=== PATIENT | male | born 1985 | race Caucasian/White ===

== ENCOUNTER 2023-12-25 21:18 | Emergency (ER) | payer OTHER, SELFPAY ==
[2023-12-25 21:22] VITALS: BP 164/90; PULSE 101; TEMP 36.6; O2SAT 97; BMI 31.2
--- NOTE | 2023-12-25 22:19 | ED.GENADUL1 ---
HPI HPI - General Adult General Chief complaint: Dizziness Stated complaint: General Weakness Time Seen by Provider: 12/25/23 22:16 Source: patient Mode of arrival: walk-in Limitations: no limitations History of Present Illness HPI narrative: 38-year-old male presented to the emergency department from work for dizziness and feeling like he might pass out. It is very hot where he works. He also drinks a great deal of coffee and energy drinks as well. He did not pass out at any point and after drinking some water in our lobby he was starting to feel little bit better. No fever or chest pain or shortness of breath. Related Data Home Medications ?Medication ?Instructions ?Recorded ?Confirmed No Known Home Medications 12/25/23 12/25/23 Allergies Allergy/AdvReac Type Severity Reaction Status Date / Time No Known Drug Allergies Allergy Verified 12/25/23 21:21 Opioid HPI Opioid Management Most Recent Opioid Data: No Data to Display Review of Systems ROS Narrative A ten point review of systems is negative except as noted above. PFSH PFSH Social History Little interest or pleasure in doing things: not at all Feeling down, depressed, or hopeless: not at all Exam Narrative Exam Narrative: Nurses note and vital signs reviewed and patient is not hypoxic. General: The patient appears in no apparent distress. Skin: Warm, dry, no pallor noted. There is no rash noted. Head: Normocephalic, atraumatic Eye: Normal conjunctiva, no drainage Ears, Nose, Mouth, and Throat: oral mucosa is moist. Nares patent. Cardiovascular: Regular Rate and Rhythm Respiratory: Patient is in no distress, no accessory muscle use, lungs are clear to auscultation, no wheezing, rales or rhonchi Back: non-tender GI: Soft and nontender Musculoskeletal: The patient has no evidence of calf tenderness, no pitting edema, symmetrical pulses noted bilaterally Neurological: A&O, normal speech Psychiatric: Cooperative Constitutional Vital Signs, click to edit/add: Last Vital Signs Temp 98 F 12/25/23 21:22 Pulse 101 H 12/25/23 21:22 Resp 18 12/25/23 21:22 BP 164/90 H 12/25/23 21:22 Pulse Ox 97 12/25/23 21:22 O2 Del Method Room Air 12/25/23 21:22 Course Vital Signs Vital signs: Vital Signs Temperature 98 F 12/25/23 21:22 Pulse Rate 101 H 12/25/23 21:22 Respiratory Rate 18 12/25/23 21:22 Blood Pressure 164/90 H 12/25/23 21:22 Pulse Oximetry 97 12/25/23 21:22 Oxygen Delivery Method Room Air 12/25/23 21:22 Temperature 98 F 12/25/23 21:22 Pulse Rate 101 H 12/25/23 21:22 Respiratory Rate 18 12/25/23 21:22 Blood Pressure 164/90 H 12/25/23 21:22 Pulse Oximetry 97 12/25/23 21:22 Oxygen Delivery Method Room Air 12/25/23 21:22 Medical Decision Making MDM Narrative Medical decision making narrative: He was given IV fluids and feels much better now. Blood work is appropriate. He is able to be discharged home and was given the rest of the night off from work. Treatment diagnosis and follow-up were discussed with the patient. My clinical impression is that he has heat exhaustion. Differential Diagnosis Differential Diagnosis: Dehydration, heat exhaustion, electrolyte imbalance Lab Data Lab results reviewed: Yes I reviewed the patient's lab results Labs: Lab Results 12/25/23 Range/Units 22:25 WBC 11.5 H (4.0-11.0) 10^3/uL RBC 4.87 (4.70-6.10) 10^6/uL Hgb 15.3 (14.0-18.0) g/dL Hct 44.0 (42.0-54.0) % MCV 90.3 (80.0-94.0) fL MCH 31.4 (25.9-34.0) pg MCHC 34.8 (29.9-35.2) g/dL RDW 11.9 (11.0-15.0) % Plt Count 282 (150-450) 10^3/uL MPV 9.7 (9.5-13.5) fL Neut % (Auto) 76.8 H (43.0-75.0) % Lymph % (Auto) 15.5 L (20.5-60.0) % Morrill % (Auto) 5.5 (1.7-12.0) % Eos % (Auto) 1.4 (0.9-7.0) % Baso % (Auto) 0.6 (0.2-2.0) % Neut # (Auto) 8.8 H (1.4-6.5) 10^3/uL Lymph # (Auto) 1.8 (1.2-3.8) 10^3/uL Morrill # (Auto) 0.6 (0.3-0.8) 10^3/uL Eos # (Auto) 0.2 (0.0-0.7) 10^3/uL Baso # (Auto) 0.1 (0.0-0.1) 10^3/uL Abs Immat Gran (auto) 0.02 (0.00-0.03) 10^3/uL Imm/Tot Granulo (auto) 0.2 (0.0-0.5) % Sodium 138 (136-145) mmol/L Potassium 3.7 (3.5-5.1) mmol/L Chloride 101 (98-107) mmol/L Carbon Dioxide 26.8 (21.0-32.0) mmol/L Anion Gap 13.9 BUN 22.0 H (7.0-18.0) mg/dL Creatinine 1.30 (0.70-1.30) mg/dL Est GFR ( Amer) >60 (>=60) Est GFR (Non-Af Amer) >60 (>=60) BUN/Creatinine Ratio 16.9 Glucose 126 H (74-106) mg/dL Calcium 9.9 (8.5-10.1) mg/dL Discharge Plan Discharge Chief Complaint: Dizziness Clinical Impression: Heat exhaustion Patient Disposition: Home, Self-Care Time of Disposition Decision: 23:24 Condition: Good Mode of Transportation: Private Vehicle Prescriptions / Home Meds: No Action No Known Home Medications Print Language: [place] Irish Instructions: Heat Exhaustion (ED), Liquids and Hydration for Athletes (ED) Referrals: Physician,Non-Staff, MD [Primary Care Provider] - 1 week
[2023-12-25] MEDS: ONDANSETRON PF 4 MG/2 ML VIAL IV (22:33)
[2023-12-25] MEDS: 0.9 % SODIUM CHLORIDE 1,000 ML 1000 ML IV (22:33)
[2023-12-25 22:38] LABS: Basophils Absolute Auto 0.1 10^3/uL (0.0-0.1); Basophils Percent Auto 0.6 % (0.2-2.0); Eosinophils Absolute Auto 0.2 10^3/uL (0.0-0.7); Eosinophils Percent Auto 1.4 % (0.9-7.0); Hemoglobin 15.3 g/dL (14.0-18.0); Immature Granulocytes Abs Auto 0.02 10^3/uL (0.00-0.03); Immature Granulocytes Pct Auto 0.2 % (0.0-0.5); Lymphocytes Absolute Auto 1.8 10^3/uL (1.2-3.8); Lymphocytes Percent Auto 15.5 % (20.5-60.0); Mean Corpuscular HGB Conc 34.8 g/dL (29.9-35.2); Mean Corpuscular Hemoglobin 31.4 pg (25.9-34.0); Mean Corpuscular Volume 90.3 fL (80.0-94.0); Mean Platelet Volume 9.7 fL (9.5-13.5); Monocytes Absolute Auto 0.6 10^3/uL (0.3-0.8); Monocytes Percent Auto 5.5 % (1.7-12.0); Neutrophils Absolute Auto 8.8 10^3/uL (1.4-6.5); Neutrophils Percent Auto 76.8 % (43.0-75.0); Platelet Count 282 10^3/uL (150-450); Red Blood Count 4.87 10^6/uL (4.70-6.10); Red Cell Distribution Width 11.9 % (11.0-15.0); White Blood Count 11.5 10^3/uL (4.0-11.0)
[2023-12-25 22:43] LABS: Anion Gap 13.9; BUN Creatinine Ratio 16.9; Calcium 9.9 mg/dL (8.5-10.1); Carbon Dioxide 26.8 mmol/L (21.0-32.0); Chloride 101 mmol/L (98-107); Estimated GFR (African America >60 (>=60); Estimated GFR (Non-African Ame >60 (>=60); Glucose 126 mg/dL (74-106); Potassium 3.7 mmol/L (3.5-5.1); Sodium 138 mmol/L (136-145)
== END 2023-12-25 23:36 | disposition home or self-care (01) ==
PROVIDERS: Emergency Provider Emergency Medicine
DX: T67.5XXA Heat exhaustion, unspecified, initial encounter (principal); X30.XXXA Exposure to excessive natural heat, initial encounter
CPT/HCPCS: 36415; 80048; 85025; 96361; 96374; 99284; J2405

== ENCOUNTER 2024-06-01 17:52 | Emergency (ER) | payer OTHER, SELFPAY ==
[2024-06-01 17:56] VITALS: BP 147/99; PULSE 102; TEMP 36.7; O2SAT 97; BMI 32.5
--- OUTSIDE RECORDS SUMMARY | 2024-06-01 17:59 | XMS_ITS | CCD ---
Author Organization [facility] Care Team Providers Care Nuclear Medical Technologist Name Role Phone MAC DELONG Admitting Unavailable BALJEET MAC Attending Unavailable MAC DELONG Referring Unavailable BALJEET MAC Consulting Unavailable DIMITRY MCGUIRE Primary Care Physician Dimitry Mcguire DO Primary Care Provider Adi GUAMAN Attending Unavailable GUAMAN, Adi Ortiz Attending Unavailable DENIZ, Adi Ortiz Attending Unavailable DIMITRY MCGUIRE Referring Unavailable Adi GUAMAN Attending Unavailable Guaman, Adi Attending Unavailable GuamanAdi Admitting Unavailable Allergies Allergy Classification Reported Allergen(s) Allergy Type Date of Onset Reaction(s) Facility (1 source) No Known Medication Allergies; Translations: [No Known Medication Allergies] Propensity to adverse reactions (disorder) [facility] Repository Medications Current Medications Medication Drug Class(es) Dates Sig (Normalized) Sig (Original) cephalexin 500 mg oral capsule (1 source) Cephalosporin Antibacterial Start: 04-17-2023 End: 04-22-2023 take 1 capsule by mouth twice daily at mealtime Keflex 500 mg Cap 500 mg = 1 cap(s), Oral, BID, start with first meal after procedure, X 5 day(s), # 10 cap(s), Refills(s) 0, Pharmacy: [facility]/pharmacy #[id number], 183, cm, 04/17/23 13:24:00 EST, Height/Length Dosing, 107, kg, 04/17/23 13:24:00 EST, Weight Dosing Start Date: 04/17/23 Stop Date: 04/22/23 Status: Ordered Fish Oils (2 sources) Start: 04-17-2023 Fish Oil Oral, Refill(s) 0 Start Date: 04/17/23 Status: Ordered Multivitamin preparation (2 sources) Start: 04-17-2023 multivitamin Refill(s) 0 Start Date: 04/17/23 Status: Ordered Problems Problem Classification Problem Date Documented Date Episodic/Chronic Alcohol-related disorders (4 sources) Alcohol abuse; Translations: [Alcohol abuse, uncomplicated] Onset: 01-16-2024 Resolved: 01-16-2024 04-17-2023 Chronic Contraceptive and procreative management (1 source) Contraception status; Translations: [Encounter for other general counseling and advice on contraception] Onset: 04-17-2023 Episodic Malaise and fatigue (2 sources) Fatigue; Translations: [Chronic fatigue, unspecified] 01-16-2024 Chronic Other nutritional; endocrine; and metabolic disorders (2 sources) Abnormal weight gain; Translations: [Abnormal weight gain] 01-16-2024 Episodic Other screening for suspected conditions (not mental disorders or infectious disease) (2 sources) Patient encounter status; Translations: [Encounter for screening for cardiovascular disorders] 01-16-2024 Episodic Residual codes; unclassified (4 sources) Other specified health status; Translations: [OTHER SPECIFIED HEALTH STATUS] Onset: 04-22-2019 Episodic Residual codes; unclassified (2 sources) Reduced libido; Translations: [Decreased libido] 01-16-2024 Episodic Substance-related disorders (4 sources) Smoker; Translations: [Nicotine dependence, unspecified, uncomplicated] Onset: 01-16-2024 04-17-2023 Chronic Comment on above: Added secondary to d ocumentation in Social History. Results Test Name Value Interpretation Reference Range Facility Pathology Request for Lab Co rpon 02-23-2024 Pathology Request for Lab Taye Normal [facility] Comment on above: Order Comment: PATHO LOGY VAS SPECIMEN Result Comment: See report. Scanned copy available in EMR. PERFORMED BY: [place] [address] PATHOLOGIST PALLIATIVE MEDICINE PHYSICIAN VAHID BARBER M.D. Performed By: #### P ATH TO [facility] #### [address] Consent for Procedure/Surger yon 06-28-2023 Consent for Procedure/Surgery [id number] #1.00TIFF [facility] Insurance Correspondenceon 0 05-17-2023 Insurance Correspondence [id number] #1.00TIFF [facility] Consent for Procedure/Surger yon 05-01-2023 Consent for Procedure/Surgery [id number] #1.00TIFF [facility] Formson 04-18-2023 Forms [id number] 9#1.00TIFF [facility] Forms [id number] #1.00TIFF [facility] Ambulatory Visit Summaryon 0 04-17-2023 Ambulatory Visit Summary ALLYN KIM :1985 Visit Date:04/17/2023 Ambulatory Visit Instructions Your Diagnosis Encounter for vasectomy counseling Your Care Team Attending Physician - Adi GUAMAN MD Primary Care Physician - DIMITRY Malhotra Referring Physician - DIMITRY Malhotra This Is Your Medications List cephalexin (Keflex 500 mg Cap) Contact prescribing physician if questions or concerns multivitamin omega-3 polyunsaturated fatty acids (Fish Oil) Discharge Vitals Heart Rate (Peripheral) 70 Respiratory Rate 16 Blood Pressure 131/87 Height 183 cm Height 72 in Weight 107 kg Weight 235.4 lb BMI 31.95 What to do next Scheduled Follow-Up Appointments Monday 2:30 PM EDT With: Adi GUAMAN MD Where: [facility] Patient Educationon 04-17-19 24 Patient Education Urology Vasectomy, Care After This sheet gives you information about how to care for yourself after your procedure. Your health care provider may also give you more specific instructions. If you have problems or questions, contact your health care provider. What can I expect after the procedure? After the procedure, it is common to have: ? Mild pain, swelling, or discomfort in your scrotum or redness on your scrotum. ? Some blood coming from your incisions or puncture sites for 1 or 2 days. ? Blood in your semen. Follow these instructions at home: Medicines ? Take wvfy-jpb-poxootl and prescription medicines only as told by your health care provider. ? Avoid taking any medicines that contain aspirin or NSAIDs, such as ibuprofen. These medicines can make bleeding worse. Activity ? For the first 2 days after surgery, avoid physical activity and exercise that requires a lot of energy. Ask your health care provider what activities are safe for you. ? Do not take part in sports or perform heavy physical labor until your pain has improved, or until your health care provider says it is okay. ? You may have limits on the amount of weight you can lift as told by your health care provider. ? Do not ejaculate for at least 1 week after the procedure, or for as long as you are told. ? You may resume sexual activity 7?10 days after your procedure, or when your health care provider approves. Use a different method of control (contraception) until you have had test results that confirm that there is no sperm in your semen. Scrotal support ? Use scrotal support, such as a jockstrap or underwear with a supportive pouch, as needed for 1 week after your procedure. ? If you feel discomfort in your scrotum, you may remove the scrotal support to see if the discomfort is relieved. Sometimes scrotal support can press on the scrotum and cause or worsen discomfort. ? If your skin gets irritated, you may add some germ-free (sterile), fluffed bandages or a clean washcloth to the scrotal support. Managing pain and swelling If directed, put ice on the affected area. To do this: ? Put ice in a plastic bag. ? Place a towel between your skin and the bag. ? Leave the ice on for 20 minutes, 2?3 times a day. ? Remove the ice if your skin turns bright red. This is very important. If you cannot feel pain, heat, or cold, you have a greater risk of damage to the area. General instructions ? Check your incisions or puncture sites every day for signs of infection. Check for: ? Redness, swelling, or more pain. ? Fluid or blood. ? Warmth. ? Pus or a bad smell. ? Leave stitches (sutures) in place. The sutures will dissolve on their own and do not need to be removed. ? Keep all follow-up visits. This is important because you will need a test to confirm that there is no sperm in your semen. Multiple ejaculations are needed to clear out sperm that were beyond the vasectomy site. You will need one test result showing that there is no sperm in your semen before you can resume unprotected sex. This may take 2?4 months after your procedure. ? If you were given a sedative during the procedure, it can affect you for several hours. Do not drive or operate machinery until your health care provider says that it is safe. Contact a health care provider if: ? You have redness, swelling, or more pain around an incision or puncture site, or in your scrotum area. ? You have bleeding from an incision or puncture site. ? You have pus or a bad smell coming from an incision or puncture site. ? You have a fever. ? An incision or puncture site opens up. Get help right away if: ? You develop a rash. ? You have trouble breathing. Summary ? After your procedure, it is common to have mild pain, swelling, redness, or discomfort in your scrotum. ? For the first 2 days after surgery, avoid physical activity and exercise that requires a lot of energy. ? Put ice on the affected area. Leave the ice on for 20 minutes, 2?3 times a day. ? If you were given a sedative during the procedure, it can affect you for several hours. Do not drive or operate machinery until your health care provider says that it is safe. This information is not intended to replace advice given to you by your health care provider. Make sure you discuss any questions you have with your health care provider. Document Revised: 08/06/2020 Document Reviewed: 08/06/2020 [employer] Patient Education ? 2022 [employer] Vasectomy Vasectomy is a procedure in which the vas deferens is cut and then tied or burned (cauterized). The vas deferens is a tube that carries sperm from the testicle to the part of the body that drains urine from the bladder (urethra). This procedure blocks sperm from going through the vas deferens and penis during ejaculation. This ensures that sperm does not go into the vagina during sex. Vasectomy does not affect sex (more content not included)... Normal [facility] CBC AUTO DIFFon 04-22-2019 Basophils (Bld) [#/Vol] 0.1 103/ul Normal 0.0-0.1 [facility] Comment on above: Performed By: #### C BC #### [facility] [address] [place], [place] [id number] Spencer Aimee Basophils/100 WBC (Bld) 0.9 % Normal 0.2-2.0 [facility] Comment on above: Performed By: #### C BC #### [facility] [address] [place] [address] Spencer Aimee Eosinophils (Bld) [#/Vol] 0.3 103/ul Normal 0.0-0.7 [facility] Comment on above: Performed By: #### C BC #### [facility] [address] [place] [address] Spencer Aimee Eosinophils/100 WBC (Bld) 3.3 % Normal 0.9-7.0 [facility] Comment on above: Performed By: #### C BC #### [facility] [address] [place] [address] Spencer Aimee Erythrocyte distribution width (RBC) [Ratio] 11.9 % Normal 11.0-15.0 [facility] Comment on above: Performed By: #### C BC #### [facility] [address] [place], [place] [id number] Spencer Aimee Hematocrit (Bld) [Volume fraction] 44.1 % Normal 42.0-54.0 [facility] Comment on above: Performed By: #### C BC #### [facility] [address] [place], [place] [id number] Spencer Aimee Hemoglobin (Bld) [Mass/Vol] 15.1 g/dL Normal 14.0-18.0 [facility] Comment on above: Performed By: #### C BC #### [facility] [address] [place] [address] Spencer Aimee IG # 0.02 10e3/ul Normal 0.00-0.03 [facility] Comment on above: Performed By: #### C BC #### [facility] [address] [place] [address] Spencer Aimee IG % 0.2 % Normal 0.0-0.5 [facility] Comment on above: Performed By: #### C BC #### [facility] [address] [place], [place] [id number] Spencer Aimee Lymphocytes (Bld) [#/Vol] 3.3 103/ul Normal 1.2-3.8 [facility] Comment on above: Performed By: #### C BC #### [facility] [address] [place], [place] [id number] Spencer Yu Lymphocytes/100 WBC (Bld) 33.6 % Normal 20.5-60.0 [facility] Comment on above: Performed By: #### C BC #### [facility] [address] [place], [place] [id number] Spencer Yu MANUAL DIFF REQ NO Normal [facility] Comment on above: Performed By: #### C BC #### [facility] [address] [place], [place] [id number] Spencer Aimee MCH (RBC) [Entitic mass] 31.7 pg Normal 25.9-34.0 [facility] Comment on above: Performed By: #### C BC #### [facility] [address] [place], [place] [id number] Spencerkiko Yu MCHC (RBC) [Mass/Vol] 34.2 g/dL Normal 29.9-35.2 [facility] Comment on above: Performed By: #### C BC #### [facility] [address] [place], [place] [id number] Spencer Aimee MCV (RBC) [Entitic vol] 92.6 fL Normal 80.0-94.0 [facility] Comment on above: Performed By: #### C BC #### [facility] [address] [place], [place] [id number] Spencer Aimee Monocytes (Bld) [#/Vol] 0.9 103/ul Critically high 0.3-0.8 [facility] Comment on above: Performed By: #### C BC #### [facility] [address] [place] [address] Spencer Aimee Monocytes/100 WBC (Bld) 9.4 % Normal 1.7-12.0 [facility] Comment on above: Performed By: #### C BC #### [facility] [address] [place], [place] [address] Spencer Aimee Neutrophils (Bld) [#/Vol] 5.1 103/ul Normal 1.4-6.5 [facility] Comment on above: Performed By: #### C BC #### [facility] [address] [place], [place] [address] Spencer Aimee Neutrophils/100 WBC (Bld) 52.6 % Normal 43.0-75.0 [facility] Comment on above: Performed By: #### C BC #### [facility] [address] [place] [address] Spencer Aimee Platelet mean volume (Bld) [Entitic vol] 9.5 fL Normal 9.5-13.5 [facility] Comment on above: Performed By: #### C BC #### [facility] [address] [place], [place] [address] Spencer Aimee Platelets (Bld) [#/Vol] 258 103/ul Normal 150-450 [facility] Comment on above: Performed By: #### C BC #### [facility] [address] [place] [address] Spencer Aimee RBC (Bld) [#/Vol] 4.76 106/ul Normal 4.70-6.10 [facility] Comment on above: Performed By: #### C BC #### [facility] [address] [place], [place] [address] Spencer Aimee WBC (Bld) [#/Vol] 9.7 103/ul Normal 4.0-11.0 [facility] Comment on above: Performed By: #### C BC #### [facility] [address] [place], [place] [address] Spencerkiko Yu LIPID PROFILEon 04-22-2019 CHOL-HDL RATIO NORM SEE BELOW Normal [facility] Comment on above: Result Comment: 3.3 - 4.4 LOW RISK 4.4 - 7.1 AVERAGE RISK 7.1 - 11.0 MODERATE RISK >11.0 HIGH RISK Performed By: #### T 4, TSH, CMP, LIPID #### [facility] [address] [place] [id number] Spencer Aimee Cholesterol [Mass/Vol] 172 mg/dL Normal <=200 [facility] Comment on above: Performed By: #### T 4, TSH, CMP, LIPID #### [facility] [address] [place] [address] Spencer Aimee Cholesterol in HDL [Mass/Vol] > or = 60 mg/dl - LOW CARDIOVASCULAR RISK <40 mg/dl - HIGH CARDIOVASCULAR RISK Normal [facility] Comment on above: Performed By: #### T 4, TSH, CMP, LIPID #### [facility] [address] [place] [address] Spencer Aimee Cholesterol in HDL [Mass/Vol] 39 mg/dL Normal [facility] Comment on above: Performed By: #### T 4, TSH, CMP, LIPID #### [facility] [address] [place] [address] Spencer Aimee Cholesterol in LDL [Mass/Vol] SEE BELOW Normal [facility] Comment on above: Result Comment: <100 mg/dl OPTIMAL 100 - 129 mg/dl NEAR OR ABOVE OPTIMAL 130 - 159 mg/dl BORDERLINE HIGH 160 - 189 mg/dl HIGH >190 mg/dl VERY HIGH Performed By: #### T 4, TSH, CMP, LIPID #### [facility] [address] [place] [id number] Spencer Aimee Cholesterol in LDL [Mass/Vol] 113.4 mg/dL Normal [facility] Comment on above: Performed By: #### T 4, TSH, CMP, LIPID #### [facility] [address] [place] [id number] Spencer Aimee Cholesterol.total/Cho lesterol in HDL [Mass ratio] 4.4 {ratio} Normal [facility] Comment on above: Performed By: #### T 4, TSH, CMP, LIPID #### [facility] [address] [place] [id number] Spencer Aimee Triglyceride [Mass/Vol] 98 mg/dL Normal <=150 [facility] Comment on above: Performed By: #### T 4, TSH, CMP, LIPID #### [facility] [address] [place] [address] Spencer Aimee VLDL CALC 19.6 mg/dL Normal [facility] Comment on above: Performed By: #### T 4, TSH, CMP, LIPID #### [facility] [address] [place] [id number] Spencerkiko Alfredoen PROF 14(COMP METB)on 020 Albumin [Mass/Vol] 4.2 g/dL Normal 3.5-5.0 [facility] Comment on above: Performed By: #### T 4, TSH, CMP, LIPID #### [facility] [address] [place] [address] Spencer Aimee Albumin/Globulin [Mass ratio] 1.2 {ratio} Normal [facility] Comment on above: Performed By: #### T 4, TSH, CMP, LIPID #### [facility] [address] [place] [address] Spencer Aimee ALP [Catalytic activity/Vol] 76 U/L Normal 38-126 [facility] Comment on above: Performed By: #### T 4, TSH, CMP, LIPID #### [facility] [address] [place] [address] Spencer Aimee ALT [Catalytic activity/Vol] 41 U/L Normal 21-72 [facility] Comment on above: Performed By: #### T 4, TSH, CMP, LIPID #### [facility] [address] [place] [address] Spencer Aimee Anion gap [Moles/Vol] 12.2 mmol/L Normal [facility] Comment on above: Performed By: #### T 4, TSH, CMP, LIPID #### [facility] [address] [place] [address] Spencer Aimee AST [Catalytic activity/Vol] 20 U/L Normal 17-59 [facility] Comment on above: Performed By: #### T 4, TSH, CMP, LIPID #### [facility] [address] [place] [address] Spencer Aimee Bilirubin Ql (U) 0.8 mg/dL Normal 0.2-1.3 [facility] Comment on above: Performed By: #### T 4, TSH, CMP, LIPID #### [facility] [address] [place] [address] Spencer Aimee Calcium [Mass/Vol] 9.4 mg/dL Normal 8.4-10.2 [facility] Comment on above: Performed By: #### T 4, TSH, CMP, LIPID #### [facility] [address] [place] [address] Spencer Aimee Chloride [Moles/Vol] 105 mmol/L Normal 98-107 [facility] Comment on above: Performed By: #### T 4, TSH, CMP, LIPID #### [facility] [address] [place] [address] Spencer Aimee CO2 [Moles/Vol] 30.7 mmol/L Critically high 22.0-30.0 [facility] Comment on above: Performed By: #### T 4, TSH, CMP, LIPID #### [facility] [address] [place] [address] Spencer Aimee Creatinine [Mass/Vol] 0.78 mg/dL Normal 0.66-1.25 [facility] Comment on above: Performed By: #### T 4, TSH, CMP, LIPID #### [facility] [address] [place] [address] Spencer Aimee EGFR-AF CHADIAN >60 Normal >=60 [facility] Comment on above: Performed By: #### T 4, TSH, CMP, LIPID #### [facility] [address] [place] [address] Spencer Aimee EGFR-NON AF CHADIAN >60 Normal >=60 [facility] Comment on above: Performed By: #### T 4, TSH, CMP, LIPID #### [facility] [address] [place] [address] Spencer Aimee Globulin (S) [Mass/Vol] 3.4 g/dL Normal [facility] Comment on above: Performed By: #### T 4, TSH, CMP, LIPID #### [facility] [address] [place] [id number] Spencer Aimee Glucose [Mass/Vol] 79 mg/dL Normal 74-106 [facility] Comment on above: Performed By: #### T 4, TSH, CMP, LIPID #### [facility] [address] [place] [address] Spencer Aimee Potassium [Moles/Vol] 3.9 mmol/L Normal 3.4-5.0 [facility] Comment on above: Performed By: #### T 4, TSH, CMP, LIPID #### [facility] [address] [place] [address] Spencer Aimee Protein [Mass/Vol] 7.6 g/dL Normal 6.1-8.2 [facility] Comment on above: Performed By: #### T 4, TSH, CMP, LIPID #### [facility] [address] [place] [address] Spencer Aimee Sodium [Moles/Vol] 144 mmol/L Normal 137-145 [facility] Comment on above: Performed By: #### T 4, TSH, CMP, LIPID #### [facility] [address] [place] [address] Spencer Aimee Urea nitrogen [Mass/Vol] 20.0 mg/dL Normal 9.0-20.0 [facility] Comment on above: Performed By: #### T 4, TSH, CMP, LIPID #### [facility] [address] [place] [address] Spencer Aimee Urea nitrogen/Creatinine [Mass ratio] 25.6 mg/mg Normal [facility] Comment on above: Performed By: #### T 4, TSH, CMP, LIPID #### [facility] [address] [place] [id number] Spencer Aimee T4on 04-22-2019 T4 [Mass/Vol] 8.20 ug/dL Normal 5.53-11.00 [facility] Comment on above: Performed By: #### T 4, TSH, CMP, LIPID #### [facility] [address] [place] [address] Spencer Aimee TSHon 04-22-2019 TSH Qn 1.751 uIU/mL Normal 0.470-4.680 [facility] Comment on above: Performed By: #### T 4, TSH, CMP, LIPID #### [facility] [address] [place] [address] Spencer Aimee TSH Qn SEE BELOW Normal [facility] Comment on above: Result Comment: <0.3 4 UIU/ml HYPERTHYROID 0.34-5.60 UIU/ml EUTHYROID >5.60 UIU/ml HYPOTHYROID Performed By: #### T 4, TSH, CMP, LIPID #### [facility] [address] [place] [address] Spencer Aimee UA RANDOM W/MICROSCOPICon Bacteria LM.HPF (Urine sed) [#/Area] TRACE Normal NONE SEEN [facility] Comment on above: Performed By: #### U AMIC #### [facility] [address] [place] [address] Spencer Aimee Bilirubin [Mass/Vol] Negative Normal NEGATIVE [facility] Comment on above: Performed By: #### U AMIC #### [facility] [address] [place] [address] Spencer Aimee BLOOD Negative Normal NEGATIVE [facility] Comment on above: Performed By: #### U AMIC #### [facility] [address] [place] [address] Spencer Aimee CAST NONE SEEN Normal NONE SEEN [facility] Comment on above: Performed By: #### U AMIC #### [facility] [address] [place] [address] Spencer Aimee Clarity (U) CLEAR Normal [facility] Comment on above: Performed By: #### U AMIC #### [facility] [address] [place] [address] Spencer Aimee Color (U) LT. YELLOW Normal YELLOW [facility] Comment on above: Performed By: #### U AMIC #### [facility] [address] [place] [address] Spencer Aimee Crystals LM Nom (Urine sed) NONE SEEN Normal NONE SEEN [facility] Comment on above: Performed By: #### U AMIC #### [facility] [address] [place] [id number] Spencer Aimee Epithelial cells LM.HPF (Urine sed) [#/Area] RARE Normal [facility] Comment on above: Performed By: #### U AMIC #### [facility] [address] [place] [address] Spencer Aimee Glucose [Mass/Vol] Negative Normal NEGATIVE [facility] Comment on above: Performed By: #### U AMIC #### [facility] [address] [place] [address] Spencer Aimee Ketones Ql (U) Negative Normal NEGATIVE [facility] Comment on above: Performed By: #### U AMIC #### [facility] [facility] [address] [address] [place] Aimee MUCOUS NONE SEEN Normal NONE SEEN [facility] Comment on above: Performed By: #### U AMIC #### [facility] [address] [address] [place] Nitrite Ql (U) Negative Normal NEGATIVE [facility] Comment on above: Performed By: #### U AMIC #### [facility] [address] [address] [place]ime[place] pH (Bld) 6.5 Normal 5-9 [facility] Comment on above: Performed By: #### U AMIC #### [facility] [address] [address] [place] Protein [Mass/Vol] Negative Normal The [facility] Comment on above: Performed By: #### U AMIC #### [facility] [address] [address] [place] Aimee RBC (Bld) [#/Vol] 0-2 Normal 0-2 [facility] Comment on above: Performed By: #### U AMIC #### [facility] [address] [address] Specner Aimee SPEC GRAVITY 1.020 Normal 1.005-<=1.025 [facility] Comment on above: Performed By: #### U AMIC #### [facility] [address] [place], [place] [address] [place] Aimee Urobilinogen Qn (U) 0.2 EU/dl Normal The [facility] Comment on above: Performed By: #### U AMIC #### [facility] [address] [place], [place] [address] [place] Aimee WBC (Bld) [#/Vol] Negative Normal NEGATIVE [facility] Comment on above: Performed By: #### U AMIC #### [facility] [address] [place], [place] [address] [place] Aimee WBC (Bld) [#/Vol] 0-2 Normal NONE SEEN [facility] Comment on above: Performed By: #### U AMIC #### [facility] [address] [place], [place] [address] [place] Aimee Vital Signs Date Time Vital Sign Value Performing Clinician Facility 03-08-2024 08:43-0500 Blood Pressure Location Adi GUAMAN [facility] 03-08-2024 08:43-0500 Body temperature 98.6 [degF] Adi GUAMAN [facility] 03-08-2024 08:43-0500 Diastolic blood pressure 80 mm[Hg] Adi GUAMAN [facility] 03-08-2024 08:43-0500 Heart rate 68 /min Adi GUAMAN [facility] 03-08-2024 08:43-0500 Respiratory rate 18 /min Adi GUAMAN [facility] 03-08-2024 08:43-0500 Systolic blood pressure 127 mm[Hg] Adi GUAMAN [facility] 01-16-2024 10:22-0400 Body height 182.9 cm Dimitry Atlanta DO Work Phone: [facility] 01-16-2024 10:22-0400 Body mass index (BMI) [Ratio] 32.31 kg/m2 Dimitry Atlanta DO Work Phone: [facility] 01-16-2024 10:22-0400 Body temperature 97 [degF] Dimitry [place] DO Work Phone: [facility] 01-16-2024 10:22-0400 Body weight 108.05 kg Dimitry [place] DO Work Phone: [facility] 01-16-2024 10:22-0400 Diastolic blood pressure 86 mm[Hg] Dimitry [place] DO Work Phone: [facility] 01-16-2024 10:22-0400 Heart rate 73 /min Dimitry [place] DO Work Phone: [facility] 01-16-2024 10:22-0400 SaO2% (BldA) [Mass fraction] 99 % Dimitry [place] DO Work Phone: [facility] 01-16-2024 10:22-0400 Systolic blood pressure 138 mm[Hg] Dimitry [place] DO Work Phone: [facility] 04-17-2023 13:14-0500 Blood Pressure Location Adi GUAMAN [facility] 04-17-2023 13:14-0500 Diastolic blood pressure 87 mm[Hg] Adi GUAMAN [facility] 04-17-2023 13:14-0500 Heart rate 70 /min Adimeng GUAMAN [facility] 04-17-2023 13:14-0500 Respiratory rate 16 /min Adi GUAMAN [facility] 04-17-2023 13:14-0500 Systolic blood pressure 131 mm[Hg] Adi GUAMAN [facility] Encounters Encounter Date Encounter Type Care Provider Facility Start: 03-08-2024 ambulatory Adi GUAMAN Isatui ty:[facility] Start: 03-08-2024 End: 03-08-2024 Patient encounter procedure Adi GUAMAN [facility] Start: 02-23-2024 End: 02-23-2024 ambulatory Adi Guaman Facility:[facility] Start: 02-23-2024 End: 02-23-2024 ambulatory Adi GUAMAN Facility:[id number] Start: 01-16-2024 End: 01-16-2024 Bamboo flowsheet Dimitry L [place] DO Work Phone: [facility] Start: 01-16-2024 End: 01-16-2024 Bamboo flowsheet Dimitry L [place] DO Work Phone: [facility] Start: 01-16-2024 End: 01-16-2024 Patient encounter status Dimitry L [place] DO Work Phone: [facility] Work Phone: Start: 01-16-2024 End: 01-16-2024 Periodic preventive med est patient 18-39 yrs Dimitry L Atlanta DO Work Phone: [facility] Comment on above: Wellness examination (Primary Dx); Encounter for screening for coronary artery disease; Chronic fatigue; Low libido; Abnormal weight gain Start: 09-04-2023 ambulatory Adi GUAMAN [place]atui ty:[facility] [place] Start: 04-17-2023 End: 04-17-2023 ambulatory Adimeng GUAMAN Facility:[facility] [place] Start: 04-17-2023 End: 04-17-2023 Patient encounter procedure Adi GUAMAN [facility] [place] Start: 04-22-2019 End: 04-23-2019 Patient encounter procedure MAC DELONG Facility:[facility] Procedures Date Procedure Procedure Detail Performing Clinician Start: 03-08-2024 H/O: vasectomy Adi Ortiz DENIZ Start: 02-23-2024 Vasectomy Adi LOPEZ YUSRA Plan of Treatment Date Care Activity Detail Author Start: 03-12-2024 Influenza vaccination Influenza Vacc ine (#1) [facility] Comment on above: Postponed from 12/02 (Patient Refused) Start: 01-16-2024 End: 01-15-2025 CBC W Auto Differential panel - Blood CBC and differential Lab Routine Wellness examination Encounter for screening for coronary artery disease Expected: 01/16/2024 (Approximate), Expires: 01/15/2025 [facility] Work Phone: Comment on above: Expected: 01/16/2024 (Approximate), Expires: 01/15/2025 Start: 01-16-2024 End: 01-15-2025 Comprehensive metabolic 2000 panel - Serum or Plasma Comprehensive metabolic panel Lab Routine Wellness examination Encounter for screening for coronary artery disease Expected: 01/16/2024 (Approximate), Expires: 01/15/2025 [facility] Comment on above: Expected: 01/16/2024 (Approximate), Expires: 01/15/2025 Start: 01-16-2024 End: 01-15-2025 Lipid 1996 panel - Serum or Plasma Lipid panel Lab Routine Wellness examination Encounter for screening for coronary artery disease Expected: 01/16/2024 (Approximate), Expires: 01/15/2025 [facility] Comment on above: Expected: 01/16/2024 (Approximate), Expires: 01/15/2025 Start: 01-16-2024 End: 01-15-2025 Testosterone [Mass/volume] in Serum or Plasma Testosterone Lab Routine Low libido Expected: 01/16/2024 (Approximate), Expires: 01/15/2025 [facility] Comment on above: Expected: 01/16/2024 (Approximate), Expires: 01/15/2025 Start: 01-16-2024 End: 01-15-2025 Thyrotropin [Units/volume] in Serum or Plasma TSH Lab Routine Chronic fatigue Abnormal weight gain Expected: 01/16/2024 (Approximate), Expires: 01/15/2025 [facility] Comment on above: Expected: 01/16/2024 (Approximate), Expires: 01/15/2025 Start: 01-16-2024 End: 01-16-2024 Patient encounter procedure 01/16/2024 10:20 AM EDT Office Visit [facility] [address] [place] [id number] Dimitry Mcguire DO [address] [place] [address] Arrived [facility] Comment on above: Arrived Start: 12-03-2023 Influenza vaccination Influenza Vacc ine (#1) [facility] Healthcare Payers Date Payer Category Payer Self-pay 2023 Private Health Insurance [id number] 2022 Private Health Insurance [facility] [id number] 1986 Unknown [id number] 1986 Unknown [id number] 1986 Unknown [id number] 1986 Unknown [id number] 1986 Unknown [id number] 1959 Private Health Insurance [id number] Unknown [id number] Social History Date Type Detail Facility Start: 04-17-2023 Tobacco smoking status Smoker (finding) [facility] Tobacco smoking status Smokeless tobacco user within last 30 days [facility] Start: 01-11-2023 End: 01-16-2024 Sex Assigned At Male [facility] Start: 01-11-2023 Tobacco smoking status NHIS Smokes tobacco daily [facility] History of tobacco use Cigarette Smoker [facility] Start: 01-11-2023 Tobacco use and exposure User of smokeless tobacco [facility] History of tobacco use Chews Tobacco [facility] Start: 01-11-2023 End: 01-16-2024 Alcoholic beverage intake Ex-drinker (finding) [facility] Start: 01-11-2023 End: 01-16-2024 History of Social function [facility] Start: 1985 Sex assigned at Male [facility] Start: 01-12-2023 Gender identity Identifies as male gender (finding) [facility] Start: 01-12-2023 Sexual orientation Heterosexual (finding) [facility] Start: 03-08-2024 Tobacco smoking status Heavy tobacco smoker (finding) [facility] Functional Status Date Assessment Result Facility 03-08-2024 Functional Status N/A [facility] 04-17-2023 Functional Status N/A [facility] Hospital Discharge instructions 03-08-2024 Note Date & Type Note Facility 03-08-2024 Hospital Discharg e instructions Patient Education 03/08/2024 09:16:03 Contraception Choices, [id number] Contraception Choices Contraception refers to things you do or use to prevent . It is also called control. There are several methods of control. Talk to your doctor about the best method for you. Hormonal control This kind of control uses hormones. Here are some types of hormonal control: A tube that is put under the skin of your arm (implant). The tube can stay in for up to 3 years. Shots you get every 3 months. Pills you take every day. A patch you change 1 time each week for 3 weeks. After that, the patch is taken off for 1 week. A ring you put in the vagina. The ring is left in for 3 weeks. Then it is taken out of the vagina for 1 week. Then a new ring is put in. Pills you take after unprotected sex. These are called emergency control pills. Barrier control Here are some types of barrier control: A thin covering that is put on the penis before sex (male condom). The covering is thrown away after sex. A soft, loose covering that is put in the vagina before sex (female condom). The covering is thrown away after sex. A rubber bowl that sits over the cervix (diaphragm). The bowl must be made for you. The bowl is put into the vagina before sex. The bowl is left in for 6 8 hours after sex. It is taken out within 24 hours. A small, soft cup that fits over the cervix (cervical cap). The cup must be made for you. The cup should be left in for 6 8 hours after sex. It is taken out within 48 hours. A sponge that is put into the vagina before sex. It must be left in for at least 6 hours after sex. It must be taken out within 30 hours and thrown away. A chemical that kills or stops sperm from getting into the womb (uterus). This chemical is called a spermicide. It may be a pill, cream, jelly, or foam to put in the vagina. The chemical should be used at least 10 15 minutes before sex. IUD control IUD means intrauterine device. It is put inside the womb. There are two kinds: Hormone IUD. This kind can stay in the womb for 3 5 years. Copper IUD. This kind can stay in the womb for 10 years. Permanent control Here are some types of permanent control: Surgery to block the fallopian tubes. Having an insert put into each fallopian tube. This method takes 3 months to work. Other forms of control must be used for 3 months. Surgery to tie off the tubes that carry sperm in men (vasectomy). This method takes 3 months to work. Other forms of control must be used for 3 months. Natural planning control Here are some types of natural planning control: Not having sex on the days the woman could get . Using a calendar: ?To keep track of the length of each menstrual cycle. ?To find out what days can happen. ?To plan to not have sex on days when can happen. Watching for signs of ovulation and not having sex during this time. One way the woman can check for ovulation is to check her temperature. Waiting to have sex until after ovulation. Where to find more information Centers for Disease Control and Prevention: www.cdc.gov Summary Contraception, also called control, refers to things you do or use to prevent . Hormonal methods of control include implants, injections, pills, patches, vaginal rings, and emergency control pills. Barrier methods of control can include male condoms, female condoms, diaphragms, cervical caps, sponges, and spermicides. There are two types of IUD (intrauterine device) control. An IUD can be put in a woman's womb to prevent for several years. Permanent control can be done through a procedure for males, females, or both. Natural planning means not having sex when the woman could get . This information is not intended to replace advice given to you by your health care provider. Make sure you discuss any questions you have with your health care provider. Document Revised: 08/24/2020 Document Reviewed: 08/24/2020 [employer] Patient Education 2023 [employer]. Follow Up Care 08/24/2023 14:16:00 With:DENIZ FREGOSO, Adi Ortiz, URL Address: [address] [place] [address]- When: Unknown [facility] History of Present illness Narrative 01-16-2024 Dimitry Mcguire, DO - 01/16/2024 10:20 AM EDT Note Date & Type Note Facility 01-16-2024 History of Presen t illness Narrative Images from the original note were not included. SUBJECTIVE: HPI: Allyn Kim is a 38 y.o. male who presents with chief complaint of Annual Exam Pt states he is here for a yearly wellness. Pt would like yearly labs and testosterone checked. Pt states he would like to discuss weight management. I have reviewed and reconciled the history and medication list with the patient today. Depression: Not at risk (01/11/2023) PHQ-2 PHQ-2 Score: 2 reports that he has been smoking cigarettes. His smokeless tobacco use includes chew. He reports that he does not currently use alcohol. He reports current drug use. Drug: Methamphetamines. OBJECTIVE: 01/11/2023 8:18 AM 01/16/2024 10:22 AM Vitals BMI 32.55 kg/m2 32.31 kg/m2 BSA (m2) 2.35 m2 2.34 m2 Systolic 136 138 Diastolic 84 86 Heart Rate 62 73 SpO2 98 % 99 % Temp 97 F 97 F Height (in) 6' 6' Weight (lb) 240 238.2 Visit Report Report Report Physical Exam Constitutional: General: He is not in acute distress. Appearance: He is not ill-appearing. HENT: Head: Normocephalic. Cardiovascular: Rate and Rhythm: Normal rate and regular rhythm. Heart sounds: No murmur heard. Pulmonary: Effort: Pulmonary effort is normal. Breath sounds: Normal breath sounds. No wheezing. Abdominal: General: Abdomen is flat. There is no distension. Tenderness: There is no abdominal tenderness. Musculoskeletal: General: No deformity. Normal range of motion. Cervical back: Normal range of motion. Skin: General: Skin is warm and dry. Neurological: General: No focal deficit present. Mental Status: He is alert and oriented to person, place, and time. Psychiatric: Mood and Affect: Mood normal. Behavior: Behavior normal. Thought Content: Thought content normal. Judgment: Judgment normal. No results found for this or any previous visit (from the past 4 weeks). ASSESSMENT AND PLAN: Assessment/Plan Diagnoses and all orders for this visit: Wellness examination - CBC and differential; Future - Comprehensive metabolic panel; Future - Lipid panel; Future Encounter for screening for coronary artery disease - CBC and differential; Future - Comprehensive metabolic panel; Future - Lipid panel; Future Chronic fatigue - TSH; Future Low libido - Testosterone; Future Abnormal weight gain - TSH; Future Preventative care discussed as appropriate. Previous labs were reviewed, new orders placed as appropriate. Recommend continuing annual wellness examinations. Patient Active Problem List Diagnosis Current smoker Past Medical History: Diagnosis Date Bipolar 1 disorder ([facility]) documented in this encounter [facility] Hospital Discharge instructions 04-17-2023 Note Date & Type Note Facility 04-17-2023 Hospital Discharg e instructions Patient Education 04/17/2023 13:33:38 Vasectomy, Care After Vasectomy, Care After This sheet gives you information about how to care for yourself after your procedure. Your health care provider may also give you more specific instructions. If you have problems or questions, contact your health care provider. What can I expect after the procedure? After the procedure, it is common to have: Mild pain, swelling, or discomfort in your scrotum or redness on your scrotum. Some blood coming from your incisions or puncture sites for 1 or 2 days. Blood in your semen. Follow these instructions at home: Medicines Take szsd-fmo-fxehkmv and prescription medicines only as told by your health care provider. Avoid taking any medicines that contain aspirin or NSAIDs, such as ibuprofen. These medicines can make bleeding worse. Activity For the first 2 days after surgery, avoid physical activity and exercise that requires a lot of energy. Ask your health care provider what activities are safe for you. Do not take part in sports or perform heavy physical labor until your pain has improved, or until your health care provider says it is okay. You may have limits on the amount of weight you can lift as told by your health care provider. Do not ejaculate for at least 1 week after the procedure, or for as long as you are told. You may resume sexual activity 7 10 days after your procedure, or when your health care provider approves. Use a different method of control (contraception) until you have had test results that confirm that there is no sperm in your semen. Scrotal support Use scrotal support, such as a jockstrap or underwear with a supportive pouch, as needed for 1 week after your procedure. If you feel discomfort in your scrotum, you may remove the scrotal support to see if the discomfort is relieved. Sometimes scrotal support can press on the scrotum and cause or worsen discomfort. If your skin gets irritated, you may add some germ-free (sterile), fluffed bandages or a clean washcloth to the scrotal support. Managing pain and swelling If directed, put ice on the affected area. To do this: Put ice in a plastic bag. Place a towel between your skin and the bag. Leave the ice on for 20 minutes, 2 3 times a day. Remove the ice if your skin turns bright red. This is very important. If you cannot feel pain, heat, or cold, you have a greater risk of damage to the area. General instructions Check your incisions or puncture sites every day for signs of infection. Check for: ?Redness, swelling, or more pain. ?Fluid or blood. ?Warmth. ?Pus or a bad smell. Leave stitches (sutures) in place. The sutures will dissolve on their own and do not need to be removed. Keep all follow-up visits. This is important because you will need a test to confirm that there is no sperm in your semen. Multiple ejaculations are needed to clear out sperm that were beyond the vasectomy site. You will need one test result showing that there is no sperm in your semen before you can resume unprotected sex. This may take 2 4 months after your procedure. If you were given a sedative during the procedure, it can affect you for several hours. Do not drive or operate machinery until your health care provider says that it is safe. Contact a health care provider if: You have redness, swelling, or more pain around an incision or puncture site, or in your scrotum area. You have bleeding from an incision or puncture site. You have pus or a bad smell coming from an incision or puncture site. You have a fever. An incision or puncture site opens up. Get help right away if: You develop a rash. You have trouble breathing. Summary After your procedure, it is common to have mild pain, swelling, redness, or discomfort in your scrotum. For the first 2 days after surgery, avoid physical activity and exercise that requires a lot of energy. Put ice on the affected area. Leave the ice on for 20 minutes, 2 3 times a day. If you were given a sedative during the procedure, it can affect you for several hours. Do not drive or operate machinery until your health care provider says that it is safe. This information is not intended to replace advice given to you by your health care provider. Make sure you discuss any questions you have with your health care provider. Document Revised: 08/06/2020 Document Reviewed: 08/06/2020 [employer] Patient Education 2022 [employer]. 04/17/2023 13:33:38 Vasectomy Vasectomy Vasectomy is a procedure in which the vas deferens is cut and then tied or burned (cauterized). The vas deferens is a tube that carries sperm from the testicle to the part of the body that drains urine from the bladder (urethra). This procedure blocks sperm from going through the vas deferens and penis during ejaculation. This ensures that sperm does not go into the vagina during sex. Vasectomy does not affect sexual desire or performance and does not prevent sexually transmitted infections. Vasectomy is considered a permanent and very effective form of control (contraception). The decision to have a vasectomy should not be made during a stressful time, such as after the loss of a or a divorce. You and your partner should decide on whether to have a vasectomy when you are sure that you do not want children in the future. Tell a health care provider about: Any allergies you have. All medicines you are taking, including vitamins, herbs, eye drops, creams, and dsul-bxi-tmhzkgz medicines. Any problems you or family members have had with anesthetic medicines. Any blood disorders you have. Any surgeries you have had. Any medical conditions you have. What are the risks? Generally, this is a safe procedure. However, problems may occur, including: Infection. Bleeding and swelling of the scrotum. The scrotum is the sac that contains the testicles, blood vessels, and structures that help deliver sperm and semen. Allergic reactions to medicines. Failure of the procedure to prevent . There is a very small chance that the tied or cauterized ends of the vas deferens may reconnect (recanalization). If this happens, you could still make a woman . Pain in the scrotum that continues after you heal from the procedure. What happens before the procedure? Medicines Ask your health care provider about: ?Changing or stopping your regular medicines. This is especially important if you are taking diabetes medicines or blood thinners. ?Taking medicines such as aspirin and ibuprofen. These medicines can thin your blood. Do not take these medicines unless your health care provider tells you to take them. ?Taking wnro-hlq-fqwhpfz medicines, vitamins, herbs, and supplements. You may be told to take a medicine to help you relax (sedative) a few hours before the procedure. General instructions Do not use any products that contain nicotine or tobacco for at least 4 weeks before the procedure. These products include cigarettes, e-cigarettes, and chewing tobacco. If you need help quitting, ask your health care provider. Plan to have a responsible adult take you home from the hospital or clinic. If you will be going home right after the procedure, plan to have a responsible adult care for you for the time you are told. This is important. Ask your health care provider: ?How your surgery site will be marked. ?What steps will be taken to help prevent infection. These steps may include: ?Removing hair at the surgery site. ?Washing skin with a germ-killing soap. ?Taking antibiotic medicine. What happens during the procedure? You will be given one or more of the following: ?A sedative, unless you were told to take this a few hours before the procedure. ?A medicine to numb the area (local anesthetic). Your health care provider will feel, or palpate, for your vas deferens. To reach the vas deferens, one of two methods may be used: ?A very small incision may be made in your scrotum. ?A punctured opening may be made in your scrotum, without an incision. Your vas deferens will be pulled out of your scrotum and cut. Then, the vas deferens will be closed in one of two ways: ?Tied at the ends. ?Cauterized at the ends to seal them off. The vas deferens will be put back into your scrotum. The incision or puncture opening will be closed with absorbable stitches (sutures). The sutures will eventually dissolve and will not need to be removed after the procedure. The procedure will be repeated on the other side of your scrotum. The procedure may vary among health care providers and hospitals. What happens after the procedure? You will be monitored to make sure that you do not have problems. You will be asked not to ejaculate for at least 1 week after the procedure, or for as long as you are told. You will need to use a different form of contraception for 2 4 months after the procedure, until you have test results confirming that there are no sperm in your semen. You may be given scrotal support to wear, such as a jockstrap or underwear with a supportive pouch. If you were given a sedative during the procedure, it can affect you for several hours. Do not drive or operate machinery until your health care provider says that it is safe. Summary Vasectomy blocks sperm from being released during ejaculation. This procedure is considered a permanent and very effective form of control. Your scrotum will be numbed with medicine (local anesthetic) for the procedure. After the procedure, you will be asked not to ejaculate for at least 1 week, or for as long as you are told. You will also need to use a different form of contraception until your test results confirm that there are no sperm in your semen. This information is not intended to replace advice given to you by your health care provider. Make sure you discuss any questions you have with your health care provider. Document Revised: 08/06/2020 Document Reviewed: 08/06/2020 [employer] Patient Education 2022 [employer]. Follow Up Care 01/11/2023 15:29:58 With:DENIZ FREGOSO, Adi Ortiz, URL Address: [facility] [address] , [place] [address] [phone] When: Unknown Comments:schedule vasectomy [facility] Clinical Note 04-17-2023 Note Date & Type Note Facility 04-17-2023 Note HPI Staff Referral for vasectomy consult. Pt has 1 child and desires sterilization. Dysuria: no Incomplete bladder emptying: no Hematuria: no Frequency: no Urgency: no Nocturia: 0-1x Stream: good stream Leaking: no Post void dripping: no Wearing pads/ Depends: no Urge incontinence: no Stress incontinence: no Incontinence without Sensory Awareness: no Abdominal pain: no Flank pain: no Sexual complaints: no History of Present Illness Tests reviewed: reviewed referral records I have reviewed the previous health record information and history for this patient from external providers. I have reviewed and verified the staff HPI to be accurate for this encounter. Review of Systems PHQ Score Initial Depression Screen Score: 0 SCORE ROS - Provider Constitutional: denies weight loss, denies hot flashes. Eyes: denies eye problems. Gastrointestinal: denies nausea, denies vomiting. Cardiovascular: denies chest pain or angina. Integumentary: no dryness Musculoskeletal: denies musculoskeletal symptoms. ENMT: denies otolaryngeal symptoms. Respiratory: no shortness of breath. Heme/Lymph: denies easy bleeding tendency, denies easy bruising tendency. Psychiatric: no confusion, no anxiety. Genitourinary: See HPI. Physical Exam Vitals & Measurements HR: 70(Peripheral) RR: 16 BP: 131/87 HT: 72 in HT: 183 cm WT: 107 kg WT: 235.4 lb BMI: 31.95 General Appearance: alert, no distress, well nourished, well developed male. Head: normocephalic . Eyes: normal orbit and globe. ENMT: normal examination of external ears. Chest: Lungs CTA, respirations non labored. Cardiovascular: regular rate and rhythm. Abdomen: soft, non distended, no tenderness, no mass or organomegaly, no hernia. Genitourinary: normal scrotum, normal testes, normal urethra, normal epididymis, normal vas deferens/spermatic cord. Flank Pain: none. Bladder: nonpalpable. Penis: normal shaft, normal glans. Lymph Nodes: unremarkable palpation of the cervical area. Skin: warm, dry, no bruising. Psychiatric: cooperative, affect appropriate for age, normal judgement, euthymic mood. Assessment/Plan Allyn is a 38 yo male new pt referred by Dr. Mcguire for vasectomy evaluation. 1. Encounter for vasectomy counseling (Z30.09: Encounter for other general counseling and advice on contraception) Pt has 1 child and desires sterilization. No hx of urological procedures. Not anticoagulated. -Will schedule Vasectomy. The procedural risks, benefits, details, and treatment alternatives of sterilization have been discussed with the patient today. He understands this procedure is considered permanent, even though vasectomy reversals can be performed. There is no guarantee of successful reversal resulting in , however. Risks discussed include bleeding, infection, failure with in about 1:2500, post-vasectomy syndrome (chronic pain in the testicle or scrotum), possible association with prostate cancer development in the future, and erection problems, among others. Despite these risks, he wishes to proceed. He also understands that he is not considered sterile until a negative semen sample has been received after about 2-3 months after the vasectomy. Full informed consent has been obtained. Will order Local anesthesia. Follow-up With When Contact Information DENIZ FREGOSO, Adi Ortiz, URL [facility] [address], [place] [address]- [phone] Additional Instructions: schedule vasectomy Patient Education Vasectomy, Care After Vasectomy I, Hyacinth Gastelum, personally scribed for Dr. Guaman on 04/17/2023 13:38:32. . Documentation recorded by the scribe, Hyacinth Gastelum, accurately reflects the services(s) I performed and decisions made by me. Authenticated by Dr. Guaman on 04/17/2023 13:39:21. Problem List/Past Medical History Ongoing Alcohol abuse Smoker Historical No qualifying data Medications Fish Oil, Oral multivitamin Allergies No Known Medication Allergies Social History Alcohol - Low Risk, 04/17/2023 Substance Abuse - Denies Substance Abuse, 04/17/2023 Tobacco Smoker, current status unknown Tobacco Use:. Smokeless tobacco user within last 30 days Smokeless Tobacco Use:. Cigarettes, Oral, 04/17/2023 Family History Alcoholism: Mother and Father. Skin cancer: Mother. [facility] Comment on above: Result Comment: Elec tronically Signed By: Adi GUAMAN MD\.br\Date and Time Signed: 04/17/23 13:39 EST\.br\Electronically Co-Signed By: Hyacinth Gastelum\.br\Date and Time Co-Signed: 04/17/23 13:38 EST Evaluation + Plan note Note Date & Type Note Facility Evaluation + Plan note Future Appointments Appointment Date:07/03/2023 02:30:00 PM Scheduled Provider:Adi GUAMAN MD Location:[facility] Appointment Type:URO Office Visit [facility] Evaluation + Plan note Note Date & Type Note Facility Evaluation + Plan note Diagnostic Tests PendingSemen Analysis Post Vasectomy 04/03/24Semen Analysis Post Vasectomy 04/03/24 [facility] Evaluation note Note Date & Type Note Facility Evaluation note Diagnosis Wellness examination- Primary Encounter for screening for coronary artery disease Chronic fatigue Other malaise and fatigue Low libido Abnormal weight gain documented in this encounter [facility] Hospital course Narrative Note Date & Type Note Facility Hospital course Narrative No data available for this section [facility] Progress note Note Date & Type Note Facility Progress note No data available for this section [facility] Summary Purpose Family History No Family History Records Found No data available for this section No Family History Records FoundNo Family History Records Found No data available for this section Advance Directives No Advanced Directives Records FoundNo Advanced Directives Records FoundNo Advanced Directives Records Found Additional Source Comments (unrecognized sect ion and content) No Status Records FoundNo Status Records FoundNo Status Records Found INFORMATION SOURCE (unrecogn ized section and content) DATE CREATED AUTHOR 04/23/2019 [facility] DATE CREATED AUTHOR AUTHOR'S ORGANIZ ATION 03/08/2024 [facility] DATE CREATED AUTHOR AUTHOR'S ORGANIZ ATION 03/14/2024 [facility] Patient Care team informatio n (unrecognized section and content) Personnel Name: DIMITRY MCGUIRE DO Address: Address: [address] [place] [address] [place], [place] [address] Nuclear Medical Technologist Relationship Specialty Start Date End Date Dimitry Mcguire DO [address] [place] [id number] PCP - General Family Medicine 01/11/23 Nuclear Medical Technologist Relationship Specialty Start Date End Date Dimitry Mcguire DO [address] [place] [id number] PCP - General Family Medicine 01/11/23 Reason for Visit (unrecogniz ed section and content) Reason Comments Annual Exam FOR RECORDS PERTAINING TO PATIENTS WHO ARE OR HAVE BEEN ENROLLED IN A CHEMICAL DEPENDENCY/SUBSTANCEABUSE PROGRAM, SOME INFORMATION MAY BE OMITTED. This clinical summary was aggregated from multiple sources. Caution should be exercised in using it in the provision of clinical care. This summary normalizes information from multiple sources, and as a consequence, information in this document may materially change the coding, format and clinical context of patient data. In addition, data may be omitted in some cases. CLINICAL DECISIONS SHOULD BE BASED ON THE PRIMARY CLINICAL RECORDS. [employer] provides no warranty or guarantee of the accuracy or completeness of information in this document.
--- NOTE | 2024-06-01 18:07 | ED.URI1 ---
HPI - URI/Sore Throat General Chief Complaint: Upper Respiratory Infection Stated Complaint: cold Time Seen by Provider: 06/01/24 18:02 Source: patient History of Present Illness HPI Narrative: cc = cough and congestion Pt with several days of upper respiratory symptoms including nasal congestion and non-productive cough. No fever or chills but I really sweated it out . No nausea, vomiting or diarrhea. No skin rash. He said that overall his symptoms are improving Related Data Home Medications ?Medication ?Instructions ?Recorded ?Confirmed No Known Home Medications 12/25/23 12/25/23 Allergies Allergy/AdvReac Type Severity Reaction Status Date / Time No Known Drug Allergies Allergy Verified 12/25/23 21:21 PFSH PFSH Social History Little interest or pleasure in doing things: not at all Feeling down, depressed, or hopeless: not at all Exam Narrative Exam Narrative: Nurses notes and vital signs reviewed and patient is not hypoxic. afebrile General: Well-appearing and in no apparent distress. Skin: Warm, dry, no pallor noted. No rash. Head: Normocephalic, atraumatic. Neck: Supple, non-tender. No cervical lymphadenopathy. No meningismus. Eye: Pupils are equal, round and EOMI. No scleral icterus. Ears, Nose, Mouth, and Throat: TM are clear, mild posterior oropharynx erythema without exudate, mild nasal mucosal hypertrophy, uvula is mid-line Oral mucosa is moist Cardiovascular: Borderline tachycardia. Respiratory: No accessory muscle use or respiratory distress. Lungs are clear to auscultation, no wheezing, rales or rhonchi Musculoskeletal: normal ROM GI: Abdomen is soft, non-distended. Normal bowel sounds. No tenderness to palpation. No rebound, guarding, or rigidity noted. Neurological: A&O x4. No cranial nerve dysfunction observed. No truncal ataxia. Moves all extremities. Sensation intact. Psychiatric: Cooperative and interactive. Normal mood and affect. Constitutional Vital Signs, click to edit/add: Last Vital Signs Temp 98.1 F 06/01/24 17:56 Pulse 102 H 06/01/24 17:56 Resp 16 06/01/24 17:56 BP 147/99 H 06/01/24 17:56 Pulse Ox 97 06/01/24 17:56 O2 Del Method Room Air 06/01/24 17:56 Course Vital Signs Vital signs: Vital Signs Temperature 98.1 F 06/01/24 17:56 Pulse Rate 102 H 06/01/24 17:56 Respiratory Rate 16 06/01/24 17:56 Blood Pressure 147/99 H 06/01/24 17:56 Pulse Oximetry 97 06/01/24 17:56 Oxygen Delivery Method Room Air 06/01/24 17:56 Temperature 98.1 F 06/01/24 17:56 Pulse Rate 102 H 06/01/24 17:56 Respiratory Rate 16 06/01/24 17:56 Blood Pressure 147/99 H 06/01/24 17:56 Pulse Oximetry 97 06/01/24 17:56 Oxygen Delivery Method Room Air 06/01/24 17:56 MDM - URI/Sore Throat MDM Narrative Medical decision making narrative: Patient has symptoms consistent with a viral URI. He is already improving. Patient was discharged home with recommendation to continue [id number] medications and he was given a work excuse for today and tomorrow. Discharge Plan Discharge Chief Complaint: Upper Respiratory Infection Clinical Impression: Upper respiratory infection Patient Disposition: Home, Self-Care Time of Disposition Decision: 18:11 Prescriptions / Home Meds: No Action No Known Home Medications Print Language: Omani Instructions: Upper Respiratory Infection (ED) Referrals: iDmitry Salgado [Primary Care Provider] - 1 week
== END 2024-06-01 18:17 | disposition home or self-care (01) ==
PROVIDERS: Emergency Provider Emergency Medicine; PCP Family Medicine
DX: J06.9 Acute upper respiratory infection, unspecified (principal)
CPT/HCPCS: 99281